=== PATIENT | male | born 1965 | race Two or more races ===

== ENCOUNTER 2016-07-27 22:08 | Emergency (ER) | payer MEDICAID ==
[~2016-07-27] VITALS: Ht 167.6 cm; Wt 89.8 kg
[2016-07-27] MEDS ORDERED: NKM (22:25)
[2016-07-27 22:30] VITALS: BP 130/89
[2016-07-27] MEDS ORDERED: Loperamide 2mg cap ORAL ONE (22:45)
[2016-07-27 23:34] LABS: APPEARANCE,URINE CLEAR; KETONES,URINE 1+ (NEGATIVE); LEUKOCYTE ESTERASE ,URINE 1+ (NEGATIVE); NITRITE,URINE POSITIVE (NEGATIVE); PH,URINE 5 (4.5-8.0); PROTEIN,URINE 3+ (NEGATIVE); UROBILINOGEN,URINE 1 MG/DL (0.0-1.0)
[2016-07-27 23:43] LABS: BASOPHILS % (AUTO) 0.6 % (0.0-2.0); EOSINOPHILS % (AUTO) 1.7 % (0.0-3.0); LYMPHOCYTES % (AUTO) 13.7 % (20.0-45.0); MEAN CORPUSCULAR HEMOGLOBIN 32.9 PG (27.0-31.0); MEAN CORPUSCULAR HGB CONC 35.8 G/DL (32.0-36.0); MEAN CORPUSCULAR VOLUME 92 FL (80-99); MEAN PLATELET VOLUME 9.1 FL (6.5-10.1); MONOCYTES % (AUTO) 6.3 % (1.0-10.0); NEUTROPHILS % (AUTO) 77.7 % (45.0-75.0); PLATELET COUNT 184 K/UL (150-450); RED BLOOD COUNT 5.34 M/UL (4.70-6.10); RED CELL DISTRIBUTION WIDTH 11.9 % (11.6-14.8); WHITE BLOOD COUNT 8.1 K/UL (4.8-10.8)
[2016-07-27 23:48] LABS: ALANINE AMINOTRANSFERASE 54 U/L (3-41); ALBUMIN/GLOBULIN RATIO 1.5 (1.0-2.7); ANION GAP 18 (5-15); ASPARTATE AMINO TRANSFERASE 36 U/L (5-40); CARBON DIOXIDE 22 mEQ/L (20-30); CHLORIDE 99 mEQ/L (98-107); CREATININE 0.8 mg/dL (0.7-1.2); GLOMERULAR FILTRATION RATE > 60 mL/min (>60); HEMOLYSIS 5; LIPASE 32 U/L (< 60); POTASSIUM 3.4 mEQ/L (3.4-4.9); SODIUM 139 mEQ/L (135-145); TOTAL PROTEIN 8.1 g/dL (6.6-8.7)
[2016-07-28] MEDS ORDERED: Ketorolac 30mg Inj IV ONE
[2016-07-28 00:05] LABS: BILIRUBIN,DIRECT 0.3 mg/dL (0.1-0.3)
[2016-07-28 00:13] LABS: RBC,URINE 0-2 /HPF (0 - 0)
[2016-07-28 00:14] LABS: BACTERIA,URINE FEW /HPF; ICTOTEST NEGATIVE; MUCUS,URINE MODERATE /LPF (NONE/OCC); SQUAMOUS EPITHELIAL CELL,UR FEW /LPF (NONE/OCC)
[2016-07-28] MEDS ORDERED: ZOFRAN4 M3 ORAL (00:25)
[2016-07-28] MEDS ORDERED: IMODIUM2 MG ORAL (00:25)
[2016-07-28] MEDS ORDERED: BENTYL10 MG ORAL (00:25)
[2016-07-28 00:50] VITALS: BP 126/84
--- NOTE | 2016-07-28 01:18 | Emergency Room Report ---
History of Present Illness General Chief Complaint: Nausea, Vomiting, and Diarrhea Source: Patient Present Illness HPI Patient is a 50-year-old male presented after increased nausea and vomiting as well as abdominal pain. Patient reported having increased abdominal pain as was her with nausea and diarrhea. The patient denied hematemesis or bloody stools. Patient reported having watery diarrhea. He had diffuse abdominal cramping. Patient had pain for approximately 2 days. He denies any fever. He denied a localized pain. Allergies: Coded Allergies: No Known Allergies (Unverified , 07/27/16) Patient History Past Medical History: see triage record Reviewed Nursing Documentation: PMH: Agreed, PSxH: Agreed Nursing Documentation-PMH Past Medical History: No Stated History Review of Systems All Other Systems: negative except mentioned in HPI Physical Exam Vital Signs Date Time Temp Pulse Resp B/P Pulse Ox O2 Delivery O2 Flow Rate FiO2 07/27/16 22:18 97.9 90 16 130/89 96 Room Air Sp02 EP Interpretation: reviewed, normal General Appearance: normal inspection, well appearing, no apparent distress, alert, GCS 15 Head: atraumatic ENT: normal ENT inspection, hearing grossly normal, normal voice Neck: normal inspection, full range of motion, supple, no bony tend Respiratory: normal inspection, lungs clear, normal breath sounds, no respiratory distress, no retraction, no wheezing Cardiovascular #1: regular rate, rhythm, no edema Gastrointestinal: normal inspection, normal bowel sounds, non tender, soft, no guarding, no hernia Genitourinary: no CVA tenderness Musculoskeletal: normal inspection, back normal, normal range of motion Neurologic: normal inspection, alert, oriented x3, responsive, 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 Differential diagnoses included ischemic bowel, appendicitis, perforated viscus, abdominal aortic aneurysm, inferior myocardial infarction, viral gastroenteritis Because of complexity of patient's case laboratory testing and imaging studies were ordered. The patient was given IV fluids as well as IV antiemetics. He was given Imodium. Laboratory testing was unremarkable. Patient was advised to follow bland diet and to recheck with primary physician in the next few days. He is advised to return if he began having worsening pain especially to the right lower quadrant persistent vomiting or any concerns Labs Test 07/27/16 23:08 White Blood Count 8.1 K/UL (4.8-10.8) Red Blood Count 5.34 M/UL (4.70-6.10) Hemoglobin 17.6 G/DL (14.2-18.0) Hematocrit 49.0 % (42.0-52.0) Mean Corpuscular Volume 92 FL (80-99) Mean Corpuscular Hemoglobin 32.9 PG (27.0-31.0) Mean Corpuscular Hemoglobin Concent 35.8 G/DL (32.0-36.0) Red Cell Distribution Width 11.9 % (11.6-14.8) Platelet Count 184 K/UL (150-450) Mean Platelet Volume 9.1 FL (6.5-10.1) Neutrophils (%) (Auto) 77.7 % (45.0-75.0) Lymphocytes (%) (Auto) 13.7 % (20.0-45.0) Monocytes (%) (Auto) 6.3 % (1.0-10.0) Eosinophils (%) (Auto) 1.7 % (0.0-3.0) Basophils (%) (Auto) 0.6 % (0.0-2.0) Urine Color Yellow Urine Appearance Clear Urine pH 5 (4.5-8.0) Urine Specific [place] 1.025 (1.005-1.035) Urine Protein 3+ (NEGATIVE) Urine Glucose (UA) Negative (NEGATIVE) Urine Ketones 1+ (NEGATIVE) Urine Occult Blood 2+ (NEGATIVE) Urine Nitrite Positive (NEGATIVE) Urine Bilirubin 1+ (NEGATIVE) Urine Ictotest Negative Urine Urobilinogen 1 MG/DL (0.0-1.0) Urine Leukocyte Esterase 1+ (NEGATIVE) Urine RBC 0-2 /HPF (0 - 0) Urine WBC 2-4 /HPF (0 - 0) Urine Squamous Epithelial Cells Few /LPF (NONE/OCC) Urine Bacteria Few /HPF (NONE) Urine Mucus Moderate /LPF (NONE/OCC) Sodium Level 139 mEQ/L (135-145) Potassium Level 3.4 mEQ/L (3.4-4.9) Chloride Level 99 mEQ/L (98-107) Carbon Dioxide Level 22 mEQ/L (20-30) Anion Gap 18 (5-15) Blood Urea Nitrogen 20 mg/dL (7-23) Creatinine 0.8 mg/dL (0.7-1.2) Estimat Glomerular Filtration Rate > 60 mL/min (>60) Glucose Level 140 mg/dL (74-106) Calcium Level 10.0 mg/dL (8.6-10.2) Total Bilirubin 2.0 mg/dL (0.0-1.2) Direct Bilirubin 0.3 mg/dL (0.1-0.3) Aspartate Amino Transf (AST/SGOT) 36 U/L (5-40) Alanine Aminotransferase (ALT/SGPT) 54 U/L (3-41) Alkaline Phosphatase 92 U/L (40-129) Total Protein 8.1 g/dL (6.6-8.7) Albumin 4.9 g/dL (3.5-5.2) Globulin 3.2 g/dL Albumin/Globulin Ratio 1.5 (1.0-2.7) Lipase 32 U/L (< 60) Last Vital Signs Date Time Temp Pulse Resp B/P Pulse Ox O2 Delivery O2 Flow Rate FiO2 07/28/16 00:50 97.9 75 16 126/84 96 Room Air Status: improved Disposition: HOME, SELF-CARE Condition: Stable Scripts Ondansetron* (ZOFRAN*) 4 Mg Tablet 4 MG ORAL Q6H Y for Nausea & Vomiting, #10 TAB Prov: Dwaine Jesus 07/28/16 Loperamide HCl (Loperamide) 2 Mg Capsule 2 MG ORAL Q4H, #20 CAP 0 Refills Prov: Dwaine Jesus 07/28/16 Dicyclomine Hcl* (BENTYL*) 10 Mg Capsule 10 MG ORAL FOUR TIMES A DAY, #30 CAP Prov: Dwaine Jesus 07/28/16 Departure Forms: Return to Work Return to Work in (Days): 3 Patient Instructions: Viral Gastroenteritis, Adult, [id number] Dwaine Jesus July 28, 2016 01:18
[2016-07-28 01:22] VITALS: BP 126/84
== END 2016-07-28 01:22 | disposition home or self-care (01) ==
LOC: EMR 22:36
DX: A08.4 Viral intestinal infection, unspecified (principal)
CPT/HCPCS: 36415; 80053; 81003; 82248; 83690; 85025; 96360; 96374; 96375; 99284; J1885; J2405

== ENCOUNTER 2016-12-06 08:37 | Emergency (ER) | payer OTHER, MEDICAID ==
[~2016-12-06] VITALS: Ht 167.6 cm; Wt 89.8 kg
[~2016-12-06 08:37] MED LIST: BENTYL10 MG ORAL; IMODIUM2 MG ORAL; NKM; ZOFRAN4 M3 ORAL
[2016-12-06 09:00] VITALS: BP 153/90
[2016-12-06 09:04] VITALS: BP 148/87
[2016-12-06] MEDS ORDERED: CIPRO HC OTIC S10 M1 OT (09:08)
--- NOTE | 2016-12-06 09:09 | Emergency Room Report ---
History of Present Illness General Chief Complaint: Flu Like Symptoms Source: Patient Present Illness HPI 51-year-old male no significant past medical history presenting with right ear pain and cough runny nose and throat pain for 4 days. Patient states aching right ear pain, no discharge. No hearing loss Complaining of runny nose with clear nasal discharge, cough productive with clear sputum, and generalized throat pain. Patient states that he is still able to eat and drink normally, no dysphagia or odynophagia Patient states that daughter at home is sick with the same symptoms No recent travel. Allergies: Coded Allergies: No Known Allergies (Unverified , 07/27/16) Patient History Past Medical History: see triage record Past Surgical History: none Pertinent Family History: none Reviewed Nursing Documentation: PMH: Agreed, PSxH: Agreed Nursing Documentation-PMH Past Medical History: No Stated History Review of Systems All Other Systems: negative except mentioned in HPI Physical Exam Vital Signs Date Time Temp Pulse Resp B/P (MAP) Pulse Ox O2 Delivery O2 Flow Rate FiO2 12/06/16 08:52 98.1 66 17 153/90 97 Room Air Sp02 EP Interpretation: reviewed, normal General Appearance: normal inspection, well appearing, no apparent distress, alert, GCS 15, non-toxic Head: normocephalic, atraumatic Eyes: bilateral eye normal inspection, bilateral eye PERRL, bilateral eye EOMI ENT: normal voice, moist mucus membranes, other - Right ear canal with yellow white debris, tenderness with pulling on the tragus. Left TM normal. mild erythema of post pharynx, no tonsillar/uvula exudate/swelling. clear nasal discharge b/l nares Neck: normal inspection, full range of motion, supple Respiratory: normal inspection, lungs clear, normal breath sounds, no respiratory distress, no retraction, no wheezing, speaking full sentences, chest symmetrical Cardiovascular #1: normal inspection, regular rate, rhythm, no edema, normal capillary refill Cardiovascular #2: 2+ radial (R), 2+ radial (L) Gastrointestinal: normal inspection, non tender, soft, non-distended, no guarding Genitourinary: no CVA tenderness Musculoskeletal: normal inspection, back normal, normal range of motion, non- tender Neurologic: normal inspection, alert, oriented x3, responsive, motor strength/ tone normal, sensory intact, normal gait, speech normal Psychiatric: normal inspection, judgement/insight normal, memory normal Skin: normal inspection, normal color, no rash, warm/dry, well hydrated, normal turgor Medical Decision Making Diagnostic Impression: Primary Impression: Upper respiratory infection, viral Additional Impression: Otitis externa of left ear ER Course 51 yo male with cough runny nose left ear pain throat pain DDX: Viral syndrome/upper respiratory tract infection Right ear of otitis externa Plan: None in the emergency room. Offered Motrin but just took a home ER course: Patient has remained stable during ED stay. Disposition: Patient is to be discharged to home. Prescriptions given are otic solution otitis externa Patient is instructed to follow up with their primary care doctor within 5 days. Patient is instructed to follow up with ENT within 3 days. Strict return precautions discussed with patient such as fever, chills, worsening/severe pain, headache, chest pain, shortness of breath, nausea, vomiting, which may indicate severe illness. Patient verbalizes understanding and agrees with plan. 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 12/06/16 Patient Instructions: Otitis Externa, [id number], Upper Respiratory Infection , Adult, [id number] Betito Lai M.D. Dec 06, 2016 09:09
== END 2016-12-06 09:24 | disposition home or self-care (01) ==
LOC: EMR 09:07
DX: J06.9 Acute upper respiratory infection, unspecified (principal); H60.92 Unspecified otitis externa, left ear; R09.89 Other specified symptoms and signs involving the circulatory and respiratory systems; H92.01 Otalgia, right ear; R05 Cough
CPT/HCPCS: 99283